=== PATIENT | female | born 1995 | race Caucasian/White ===

== ENCOUNTER 2018-01-07 19:03 | Emergency (ER) | payer BC ==
--- NOTE | 2018-01-07 19:29 | EDM.PDOC ---
ED HPI GENERAL MEDICAL PROBLEM - General Chief Complaint: Respiratory Problem Stated Complaint: COUGHING Time Seen by Provider: 01/07/18 19:21 - History of Present Illness INITIAL COMMENTS - FREE TEXT/NARRATIVE: HISTORY AND PHYSICAL: History of present illness: The patient is a healthy 22-year-old female who presents with a two-week history of cough productive of some phlegm, body aches, subjective fevers nasal drainage and congestion. The patient is been eating and drinking normally and denies as she just finished her period. She has no abdominal complaints. She did not get her flu shot this year. The patient is here with her boyfriend was also patient with similar symptoms. The patient is a smoker of cigarettes Review of systems: As per history of present illness and below otherwise all systems reviewed and negative. Past medical history: As per history of present illness and as reviewed below otherwise noncontributory. Surgical history: As per history of present illness and as reviewed below otherwise noncontributory. Social history: No reported history of drug or alcohol abuse. Family history: As per history of present illness and as reviewed below otherwise noncontributory. Physical exam: HEENT: Atraumatic, normocephalic, pupils reactive, negative for conjunctival pallor or scleral icterus, mucous membranes moist, throat clear, neck supple, nontender, trachea midline. Vital signs are noted by me. Nasal turbinates are boggy but there is no discrete sinus tenderness. There is no cervical adenopathy or nuchal rigidity Lungs: Clear to auscultation, breath sounds equal bilaterally, chest nontender. No wheezing stridor or work of breathing Heart: S1S2, regular rate and rhythm no overt murmurs Abdomen: Soft, nondistended, nontender. NABS Pelvis: Deferred Genitourinary: Deferred. Rectal: Deferred. Extremities: Atraumatic, negative for cords or calf pain. Neurovascular unremarkable. Neuro: Awake, alert, oriented. Cranial nerves II through XII unremarkable. Cerebellum unremarkable. Motor and sensory unremarkable throughout. Exam nonfocal. Diagnostics: Influenza chest x-ray Therapeutics: [] Impression: Bronchitis/URI Definitive disposition and diagnosis as appropriate pending reevaluation and review of above. back of head Pain Score (Numeric/FACES): 4 - Related Data Allergies Allergy/AdvReac Type Severity Reaction Status Date / Time sulfamethoxazole Allergy Rash Verified 01/07/18 19:14 [From Bactrim] trimethoprim [From Bactrim] Allergy Rash Verified 01/07/18 19:14 Home Meds: Home Meds . [No Known Home Meds] 01/07/18 [History] ED ROS GENERAL - Review of Systems Review Of Systems: ROS reveals no pertinent complaints other than HPI. ED EXAM, GENERAL - Physical Exam Exam: See Below (See dictation) Course - Vital Signs Last Recorded V/S: Last Vital Signs Temp 37.0 C 01/07/18 19:10 Pulse 106 H 01/07/18 19:10 Resp 17 01/07/18 19:10 BP 127/58 L 01/07/18 19:10 Pulse Ox 97 01/07/18 19:10 - Orders/Labs/Meds Orders: Active Orders 24 hr Category Date Time Status Communication Order [RC] STAT Care 01/07/18 19:59 Ordered Chest 2V [CR] Stat Exams 01/07/18 19:27 Taken Departure - Departure Time of Disposition: 20:00 Disposition: Home, Self-Care 01 Condition: Good Clinical Impression: Bronchitis URI (upper respiratory infection) Qualifiers: URI type: unspecified URI Qualified Code(s): J06.9 - Acute upper respiratory infection, unspecified - Discharge Information Referrals: PCP,None [Primary Care Provider] - Forms: ED Department Discharge Additional Instructions: The following information is given to patients seen in the emergency department who are being discharged to home. This information is to outline your options for follow-up care. We provide all patients seen in our emergency department with a follow-up referral. The need for follow-up, as well as the timing and circumstances, are variable depending upon the specifics of your emergency department visit. If you don't have a primary care physician on staff, we will provide you with a referral. We always advise you to contact your personal physician following an emergency department visit to inform them of the circumstance of the visit and for follow-up with them and/or the need for any referrals to a consulting specialist. The emergency department will also refer you to a specialist when appropriate. This referral assures that you have the opportunity for followup care with a specialist. All of these measure are taken in an effort to provide you with optimal care, which includes your followup. Under all circumstances we always encourage you to contact your private physician who remains a resource for coordinating your care. When calling for followup care, please make the office aware that this follow-up is from your recent emergency room visit. If for any reason you are refused follow-up, please contact the [facility] emergency department at and ask to speak to the emergency department charge nurse. [facility] Primary [facility]- Internal Medicine and Family [address] [id number] Please push hydration and use cool mist humidifier at sleep times, over-the- counter Zoe/Claritin/Benadryl to dry up sinus fluid, [id number] cough meds as you choose, Tylenol/ibuprofen for fevers and body aches, Vicks to chest for congestion. Please contact our clinic and schedule a follow-up appointment for further care and return to ER as needed and as discussed. Please use the albuterol through the spacer as needed for cough and shortness of breath. Please try to reduce and/or stop smoking. - My Orders Last 24 Hours: My Active Orders 01/07/18 19:27 Chest 2V [CR] Stat 01/07/18 19:59 Communication Order [RC] STAT - Assessment/Plan Last 24 Hours: My Active Orders 01/07/18 19:27 Chest 2V [CR] Stat 01/07/18 19:59 Communication Order [RC] STAT
--- NOTE | 2018-01-08 10:19 | CR ---
EXAM DATE: 01/07/18 PATIENT'S AGE: 22 Patient: LEXIE SAINZ Facility: [place], [place] Site . Site : 1995 Study: XRay Chest [id number]/12/2018 7:46:11 PM Ordering Physician: Doctor Quezada Final Report: INDICATION: cough/congestion x2 weeks TECHNIQUE: Chest 2 views COMPARISON: None FINDINGS: Cardiovascular and mediastinum: Heart size and vasculature are normal in caliber and appearance. Mediastinum is within normal limits. Lungs and pleural spaces: No focal consolidation. No sign of pleural effusion. No pneumothorax. Bones and soft tissues: No significant findings. IMPRESSION: No acute cardiopulmonary disease Dictated by Sen Dowell MD @ 01/07/2018 7:53:09 PM Dictated by: Sen Dowell MD @ 01/07/2018 19:56:20 (Electronic Signature) Report Signed by Proxy. KRISTINE
== END 2018-01-07 20:12 | disposition home or self-care (01) ==
LOC: MW.ED 19:03
DX: J40 Bronchitis, not specified as acute or chronic (principal); F17.210 Nicotine dependence, cigarettes, uncomplicated; Z88.1 Allergy status to other antibiotic agents; Z88.2 Allergy status to sulfonamides
CPT/HCPCS: 71046; 71046-26; 87804; 99283

== ENCOUNTER 2019-08-31 07:34 | Emergency (ER) | payer SELFPAY ==
--- NOTE | 2019-08-31 07:47 | EDM.PDOC ---
ED HPI GENERAL MEDICAL PROBLEM - General Chief Complaint: Skin Complaint Stated Complaint: PER PT. SHE HAS A CYST GROWING IN ANAL Time Seen by Provider: 08/31/19 07:40 Source of Information: Reports: Patient History Limitations: Reports: No Limitations - History of Present Illness INITIAL COMMENTS - FREE TEXT/NARRATIVE: History of present illness: []Patient has had 3-5 days of tenderness on her right buttock. He denies any fevers, chills or drainage from the wound. Review of systems: As per history of present illness and below otherwise all systems reviewed and negative. Past medical history: As per history of present illness and as reviewed below otherwise noncontributory. Surgical history: As per history of present illness and as reviewed below otherwise noncontributory. Social history: No reported history of drug or alcohol abuse. Family history: As per history of present illness and as reviewed below otherwise noncontributory. Physical exam: General: Well developed, well nourished in NAD HEENT: Atraumatic, normocephalic, pupils reactive, negative for conjunctival pallor or scleral icterus, mucous membranes moist, throat clear, neck supple, nontender, trachea midline. Lungs: Clear to auscultation, breath sounds equal bilaterally, chest nontender. Heart: S1S2, regular, negative for clicks, rubs, or JVD. Abdomen: NABS, Soft, nondistended, nontender. Negative for masses or hepatosplenomegaly. Negative for costovertebral tenderness. Pelvis: Stable nontender. Genitourinary: right buttock with 6x6 cm erythematous, tender, fluctuant lesion Rectal: Deferred. Extremities: Atraumatic, negative for cords or calf pain. Neurovascular unremarkable. Neuro: Awake, alert, oriented. Cranial nerves II through XII unremarkable. Cerebellum unremarkable. Motor and sensory unremarkable throughout. Exam nonfocal. Skin:warm and dry Diagnostics: none Therapeutics: I and D abscess, dilaudid, zofran ED Course: stable Impression: buttock abscess Prescriptions: doxycycline, tramadol Plan: Take meds as directed, follow up with your primary care physician, return to ER if symptoms worsen or change. Definitive disposition and diagnosis as appropriate pending reevaluation and review of above. Bottom Pain Score (Numeric/FACES): 7 - Related Data Allergies Allergy/AdvReac Type Severity Reaction Status Date / Time sulfamethoxazole Allergy Rash Verified 08/31/19 07:42 [From Bactrim] trimethoprim [From Bactrim] Allergy Rash Verified 08/31/19 07:42 Home Meds: Home Meds Doxycycline [Vibramycin] 100 mg PO BID #20 tab 08/31/19 [Rx] traMADol HCl [Tramadol HCl] 50 mg PO Q6H PRN #16 tablet 08/31/19 [Rx] Past Medical History Psychiatric History: Reports: Anxiety Social & Family History - Family History Family Medical History: Noncontributory - Caffeine Use Caffeine Use: Reports: Energy Drinks ED ROS GENERAL - Review of Systems Review Of Systems: See Below ED EXAM, SKIN/RASH Exam: See Below ED SKIN PROCEDURES - I&D Site: right buttock Skin Prep: Providone-Iodine (Betadine) Local Anesthesia: Lidocaine: 1% with EPI Local Anesthesia - Bupivicaine (Marcaine): 0.5% Plain Local Anesthetic Volume: 2cc Area Incised With: 11 Blade Drainage: Purulent, Moderate Amount Probed to Break Up Loculations: Yes Packed With: 1/4 in. Iodoform Sterile Dressinx4(s) Complications: No Course - Vital Signs Last Recorded V/S: Last Vital Signs Temp 98.9 F 08/31/19 07:43 Pulse 84 08/31/19 07:43 Resp 18 08/31/19 07:43 BP 116/74 08/31/19 07:43 Pulse Ox 96 08/31/19 07:43 - Orders/Labs/Meds Meds: Medications Discontinued Medications Generic Name Dose Route Start Last Admin Trade Name Freq PRN Reason Stop Dose Admin Bupivacaine HCl 10 ml 08/31/19 07:50 08/31/19 07:55 Sensorcaine-Mpf 0.5% INJECT 08/31/19 07:51 10 ml ONETIME ONE Administration Hydromorphone HCl 1 mg 08/31/19 07:50 08/31/19 07:55 Dilaudid IM 08/31/19 07:51 1 mg ONETIME ONE Administration Lidocaine/Epinephrine 20 ml 08/31/19 07:50 08/31/19 07:55 Xylocaine 1% With Epinephrine 1:100,000 INJECT 08/31/19 07:51 20 ml ONETIME ONE Administration Ondansetron HCl 4 mg 08/31/19 07:50 08/31/19 07:55 Zofran Odt PO 08/31/19 07:51 4 mg ONETIME ONE Administration Departure - Departure Time of Disposition: 08:28 Disposition: Home, Self-Care 01 Condition: Good Clinical Impression: Abscess of buttock, right - Discharge Information *PRESCRIPTION DRUG MONITORING PROGRAM REVIEWED*: No *COPY OF PRESCRIPTION DRUG MONITORING REPORT IN PATIENT YENNY: No Prescriptions: Doxycycline [Vibramycin] 100 mg PO BID #20 tab traMADol HCl [Tramadol HCl] 50 mg PO Q6H PRN #16 tablet PRN Reason: Pain Referrals: PCP,None [Primary Care Provider] - Forms: ED Department Discharge Additional Instructions: The following information is given to patients seen in the emergency department who are being discharged to home. This information is to outline your options for follow-up care. We provide all patients seen in our emergency department with a follow-up referral. The need for follow-up, as well as the timing and circumstances, are variable depending upon the specifics of your emergency department visit. If you don't have a primary care physician on staff, we will provide you with a referral. We always advise you to contact your personal physician following an emergency department visit to inform them of the circumstance of the visit and for follow-up with them and/or the need for any referrals to a consulting specialist. The emergency department will also refer you to a specialist when appropriate. This referral assures that you have the opportunity for follow-up care with a specialist. All of these measure are taken in an effort to provide you with optimal care, which includes your follow-up. Under all circumstances we always encourage you to contact your private physician who remains a resource for coordinating your care. When calling for follow-up care, please make the office aware that this follow-up is from your recent emergency room visit. If for any reason you are refused follow-up, please contact the [facility] Emergency Department at and asked to speak to the emergency department charge nurse. Take meds as directed, follow up with your primary care physician, return to ER if symptoms worsen or change. [facility] [address] [place] [id number]
[2019-08-31] MEDS ORDERED: Bupivacaine 0.5% 10 ML SDV INJECT ONE (07:50)
[2019-08-31] MEDS ORDERED: Lidocaine 1% with EPINEPHrine 1:100,000 20 ML MDV INJECT ONE (07:50)
[2019-08-31] MEDS ORDERED: HYDROmorphone 1 MG/ML Syringe IM ONE (07:50)
[2019-08-31] MEDS ORDERED: Ondansetron 4 MG Tab.DIS PO ONE (07:50)
== END 2019-08-31 08:41 | disposition home or self-care (01) ==
LOC: MW.ED 07:34
DX: L02.31 Cutaneous abscess of buttock (principal); Z88.1 Allergy status to other antibiotic agents; Z88.2 Allergy status to sulfonamides
CPT/HCPCS: 10060; 96372; 99282; A9270; J1170; J3490

== ENCOUNTER 2019-10-02 22:31 | Emergency (ER) | payer SELFPAY ==
--- NOTE | 2019-10-02 22:35 | EDM.PDOC ---
ED HPI GENERAL MEDICAL PROBLEM - General Stated Complaint: MEDICAL CLEARANCE Time Seen by Provider: 10/02/19 22:32 - History of Present Illness INITIAL COMMENTS - FREE TEXT/NARRATIVE: HISTORY AND PHYSICAL: History of present illness: Patient's 23-year-old white female in custody of law enforcement who presents for medical clearance with no complaints Review of systems: As per history of present illness and below otherwise all systems reviewed and negative. Past medical history: As per history of present illness and as reviewed below otherwise noncontributory. Surgical history: As per history of present illness and as reviewed below otherwise noncontributory. Social history: No reported history of drug or alcohol abuse. Family history: As per history of present illness and as reviewed below otherwise noncontributory. Physical exam: HEENT: Atraumatic, normocephalic, pupils reactive, negative for conjunctival pallor or scleral icterus, mucous membranes moist, throat clear, neck supple, nontender, trachea midline. Lungs: Clear to auscultation, breath sounds equal bilaterally, chest nontender. Heart: S1S2, regular, negative for clicks, rubs, or JVD. Abdomen: Soft, nondistended, nontender. Negative for masses or hepatosplenomegaly. Negative for costovertebral tenderness. Pelvis: Stable nontender. Genitourinary: Deferred. Rectal: Deferred. Extremities: Atraumatic, negative for cords or calf pain. Neurovascular unremarkable. Neuro: Awake, alert, oriented. Cranial nerves II through XII unremarkable. Cerebellum unremarkable. Motor and sensory unremarkable throughout. Exam nonfocal. Diagnostics: None Therapeutics: None Impression: #1 medical clearance for incarceration Definitive disposition and diagnosis as appropriate pending reevaluation and review of above. - Related Data Allergies Allergy/AdvReac Type Severity Reaction Status Date / Time sulfamethoxazole Allergy Rash Verified 08/31/19 07:42 [From Bactrim] trimethoprim [From Bactrim] Allergy Rash Verified 08/31/19 07:42 Home Meds: Home Meds Doxycycline [Vibramycin] 100 mg PO BID #20 tab 08/31/19 [Rx] traMADol HCl [Tramadol HCl] 50 mg PO Q6H PRN #16 tablet 08/31/19 [Rx] Past Medical History - Past Health History Medical/Surgical History: Denies Medical/Surgical History Psychiatric History: Reports: Anxiety - Infectious Disease History Infectious Disease History: Reports: None Social & Family History - Family History Family Medical History: Noncontributory - Caffeine Use Caffeine Use: Reports: Energy Drinks ED ROS GENERAL - Review of Systems Review Of Systems: Comprehensive ROS is negative, except as noted in HPI. ED EXAM, GENERAL - Physical Exam Exam: See Below (See dictation) Departure - Departure Time of Disposition: 22:35 Disposition: Home, Self-Care 01 Condition: Good Clinical Impression: Medical clearance for incarceration - Discharge Information Additional Instructions: The following information is given to patients seen in the emergency department who are being discharged to home. This information is to outline your options for follow-up care. We provide all patients seen in our emergency department with a follow-up referral. The need for follow-up, as well as the timing and circumstances, are variable depending upon the specifics of your emergency department visit. If you don't have a primary care physician on staff, we will provide you with a referral. We always advise you to contact your personal physician following an emergency department visit to inform them of the circumstance of the visit and for follow-up with them and/or the need for any referrals to a consulting specialist. The emergency department will also refer you to a specialist when appropriate. This referral assures that you have the opportunity for followup care with a specialist. All of these measure are taken in an effort to provide you with optimal care, which includes your followup. Under all circumstances we always encourage you to contact your private physician who remains a resource for coordinating your care. When calling for followup care, please make the office aware that this follow-up is from your recent emergency room visit. If for any reason you are refused follow-up, please contact the [facility] emergency department at and asked to speak to the emergency department charge nurse. Follow-up primary medical doctor return as needed as discussed
== END 2019-10-02 22:51 | disposition home or self-care (01) ==
LOC: MW.ED 22:31
DX: Z02.89 Encounter for other administrative examinations (principal); Z88.2 Allergy status to sulfonamides; Z88.8 Allergy status to other drugs, medicaments and biological substances
CPT/HCPCS: 99281; 99282